=== PATIENT | female | born 1990 | race American Indian/Alaskan Native ===

== ENCOUNTER 2022-02-27 16:40 | Emergency (ER) | payer MEDICAID ==
--- NOTE | 2022-02-27 18:40 | XRay Report ---
Left hand 3 views INDICATION: Left hand pain IMPRESSION: No fracture or subluxation is identified. 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 Signer Name: Kirit Austin MD Signed: 02/27/2022 6:35 PM Workstation Name: [id number]
[2022-02-27] MEDS ORDERED: HYDROcodone/ACETAMINOPHEN 5-325 MG TAB PO ONE (19:57)
[2022-02-27] MEDS ORDERED: IBUPROFEN 600 MG TAB PO ONE (19:57)
[2022-02-27] MEDS ORDERED: ONDANSETRON 4 MG ODT TAB PO ONE (19:57)
--- NOTE | 2022-02-27 20:13 | Emergency Department Report ---
ED Upper Extremity Inj HPI - General Chief Complaint: Extremity Injury, Upper Stated Complaint: DISLOCATED THUMB Source: patient Mode of arrival: Ambulatory Limitations: No Limitations - History of Present Illness Initial Comments: Patient is a 31-year-old -[place] female with no past medical history who presents to the ED with complaint of acute onset persistent left hand and left thumb pain after she slipped and fell at home and landed on the left hand 24 hours ago. Patient states the pain has been constant and persistent and that any active range of motion of the left hand makes the pain worse. Patient also complains of numbness and tingling intermittently since the injury occurred. Patient denies head or neck injuries, dizziness, syncope, chest pain or sh ortness of breath, nausea and vomiting, back pain, lightheadedness or abdominal pain. MD Complaint: Injury to:: left, hand -: Sudden, hour(s) (24) Other Extremity Injury: Fingers: Left (Left thumb pain), Hand: Left (PAIN) Other Injuries: none Place: home Severity scale (0 -10): 8 Improves With: none Worsens With: movement of extremity Context: fall, direct blow, injury Associated Symptoms: denies other symptoms. denies: weakness, numbness, neck pain, suspects foreign body, nausea/vomiting, heard/felt popping sensat, other Treatments Prior to Arrival: NSAIDS - Related Data Previous Rx's Medication Instructions Recorded Last Taken Type Ibuprofen [Motrin] 600 mg PO Q8H PRN #30 tablet 02/27/22 Unknown Rx traMADoL [Ultram] 50 mg PO Q6HR PRN #12 tablet 02/27/22 Unknown Rx Allergies Allergy/AdvReac Type Severity Reaction Status Date / Time No Known Allergies Allergy Verified 02/27/22 18:02 ED Review of Systems ROS: Stated complaint: DISLOCATED THUMB Other details as noted in HPI Constitutional: denies: chills, fever Eyes: denies: eye pain, eye discharge, vision change ENT: denies: ear pain, throat pain Respiratory: denies: cough, shortness of breath, wheezing Cardiovascular: denies: chest pain, palpitations Endocrine: no symptoms reported Gastrointestinal: denies: abdominal pain, nausea, diarrhea Genitourinary: denies: urgency, dysuria, discharge Musculoskeletal: joint swelling (left hand and thumb pain with swelling), arthralgia (left hand and thumb pain). denies: back pain Skin: denies: rash, lesions Neurological: denies: headache, weakness, paresthesias Psychiatric: denies: anxiety, depression Hematological/Lymphatic: denies: easy bleeding, easy bruising ED Past Medical Hx - Medications Home Medications: Home Medications Medication Instructions Recorded Confirmed Last Taken Type Ibuprofen [Motrin] 600 mg PO Q8H PRN #30 tablet 02/27/22 Unknown Rx traMADoL [Ultram] 50 mg PO Q6HR PRN #12 tablet 02/27/22 Unknown Rx ED Physical Exam - General Limitations: No Limitations General appearance: alert, in no apparent distress - Head Head exam: Present: atraumatic, normocephalic, normal inspection - Eye Eye exam: Present: normal appearance, PERRL, EOMI Pupils: Present: normal accommodation - ENT ENT exam: Present: normal exam, normal orophraynx, mucous membranes moist, TM's normal bilaterally, normal external ear exam - Neck Neck exam: Present: normal inspection, full ROM. Absent: tenderness - Respiratory Respiratory exam: Present: normal lung sounds bilaterally. Absent: respiratory distress, wheezes, rales, rhonchi, chest wall tenderness, accessory muscle use - Cardiovascular Cardiovascular Exam: Present: regular rate, normal rhythm, normal heart sounds. Absent: systolic murmur, diastolic murmur, rubs, gallop - GI/Abdominal GI/Abdominal exam: Present: soft, normal bowel sounds. Absent: tenderness, guarding, rebound, hyperactive bowel sounds, hypoactive bowel sounds, organomegaly - Extremities Exam Extremities exam: Present: normal inspection, tenderness (palpable left thumb and hand tenderness), normal capillary refill, joint swelling. Absent: full ROM (limited ROM of left hand due to pain), pedal edema, calf tenderness, other - Back Exam Back exam: Present: normal inspection, full ROM. Absent: tenderness, CVA tenderness (R), CVA tenderness (L), muscle spasm, paraspinal tenderness, vertebral tenderness, rash noted - Neurological Exam Neurological exam: Present: alert, oriented X3, CN II-XII intact, normal gait, reflexes normal - Psychiatric Psychiatric exam: Present: normal affect, normal mood - Skin Skin exam: Present: warm, dry, intact, normal color. Absent: rash ED Course Vital Signs 02/27/22 18:05 Temperature 98.2 F Pulse Rate 98 H Respiratory 18 Rate Blood Pressure 116/79 O2 Sat by Pulse 98 Oximetry ED Medical Decision Making - Radiology Data Radiology results: report reviewed, image reviewed [facility] [address] [place] [address] XRay Report Signed Patient: MYRIAM DEL TORO MR#: [id number] : 1990 Acct:[id number] Age/Sex: 31 / F ADM Date: 02/27/22 Loc: ED Attending Dr: Ordering Physician: DELPHINE KANG MD Date of Service: 02/27/22 Procedure(s): XR hand 3+V LT Accession Number(s): [id number] cc: ED MD PEARL Fluoro Time In Minutes: Left hand 3 views INDICATION: Left hand pain IMPRESSION: No fracture or subluxation is identified. Mild degenerative changes of the thumb carpal metacarpal joint. Signer Name: Kirit Austin MD Signed: 02/27/2022 6:35 PM Workstation Name: [id number] Transcribed By: BC Dictated By: Kirit Austin MD Electronically Authenticated By: Kirit Austin MD Signed Date/Time: 02/27/221834 DD/ 30 TD/TT: Print Cancel - Medical Decision Making This is a 31-year-old -[place] female with no past medical history who presents to the ED with complaint of acute onset persistent left hand and left thumb pain after she slipped and fell at home and landed on the left hand 24 hours ago. Patient states the pain has been constant and persistent and that any active range of motion of the left hand makes the pain worse. Patient also complains of numbness and tingling intermittently since the injury occurred. In the ED, patient is alert and oriented x3 and is not in any distress. Patient was treated for pain in the ED. Left hand x-ray showed no acute fractures or subluxations. Patient left hand was splinted with Velcro splint and the patient was discharged home on pain medications and advised to follow-up with her primary care physician in 7 to 10 days for reevaluation or return to the ED immediately if symptoms get worse. - Differential Diagnosis hand fracture; hand sprain; hand contusion; finger fracture; finger sprain Critical care attestation.: If time is entered above; I have spent that time in minutes in the direct care of this critically ill patient, excluding procedure time. ED Disposition Clinical Impression: Sprain of carpometacarpal joint of left hand Qualifiers: Encounter type: initial encounter Qualified Code(s): S63.8X2A - Sprain of other part of left wrist and hand, initial encounter Sprain of left thumb Qualifiers: Encounter type: initial encounter Sprain of finger site: metacarpophalangeal joint Qualified Code(s): S63.642A - Sprain of metacarpophalangeal joint of left thumb, initial encounter Contusion of left hand including fingers Qualifiers: Encounter type: initial encounter Qualified Code(s): S60.222A - Contusion of left hand, initial encounter; S60.00XA - Contusion of unspecified finger without damage to nail, initial encounter Disposition: HOME / SELF CARE / HOMELESS Is pt being admited?: No Does the pt Need Aspirin: No Condition: Stable Instructions: Finger Sprain (ED), Finger Sprain, Adult, [id number], Intermetacarpal Sprain, Hand Contusion, [id number] Additional Instructions: Left hand x-ray showed no acute fractures or subluxations. Therefore your injuries are musculoskeletal following the fall. Therefore take medications with food, drink plenty of fluids and follow-up with your primary care physician in 7 to 10 days for reevaluation or return to the ED immediately if symptoms get worse. Prescriptions: Ibuprofen [Motrin] 600 mg PO Q8H PRN #30 tablet PRN Reason: Pain traMADoL [Ultram] 50 mg PO Q6HR PRN #12 tablet PRN Reason: Pain Referrals: JULES MARSHALL MD [Primary Care Provider] - 3-5 Days Forms: Work/School Release Form(ED) Time of Disposition: 20:13 Print Language: MONGOLIAN
[2022-02-27 20:22] VITALS: BP 132/86
== END 2022-02-27 20:46 | disposition home or self-care (01) ==
LOC: ED 16:40
DX: S63.8X2A Sprain of other part of left wrist and hand, initial encounter (principal); S63.642A Sprain of metacarpophalangeal joint of left thumb, initial encounter; W01.0XXA Fall on same level from slipping, tripping and stumbling without subsequent striking against object, initial encounter; Y93.89 Activity, other specified; Y92.008 Other place in unspecified non-institutional (private) residence as the place of occurrence of the external cause; Y99.8 Other external cause status
CPT/HCPCS: 99283; J3490; Q0162